=== PATIENT | male | born 1990 | race African-American/Black ===

== ENCOUNTER 2018-06-26 09:29 | Emergency (ER) | payer SELFPAY ==
[2018-06-26 09:32] VITALS: BMI 28.2
[2018-06-26 11:03] VITALS: BP 122/64
== END 2018-06-26 11:04 | disposition home or self-care (01) ==
LOC: D.ER 09:29
DX: F20.9 Schizophrenia, unspecified (principal); Z91.14 Patient's other noncompliance with medication regimen; Z91.19 Patient's noncompliance with other medical treatment and regimen

== ENCOUNTER 2018-08-07 08:03 | Emergency (ER) | payer OTHER ==
[~2018-08-07] VITALS: Ht 170.2 cm; Wt 79.1 kg
[2018-08-07 08:07] VITALS: Ht 170.2 cm; Wt 79.1 kg
[2018-08-07] MEDS ORDERED: VOLTAREN75 MG PO (08:52)
[2018-08-07 09:55] VITALS: BP 126/72
== END 2018-08-07 09:56 | disposition home or self-care (01) ==
LOC: D.ER 08:03
DX: S86.812A Strain of other muscle(s) and tendon(s) at lower leg level, left leg, initial encounter (principal); S83.92XA Sprain of unspecified site of left knee, initial encounter; X58.XXXA Exposure to other specified factors, initial encounter; F17.210 Nicotine dependence, cigarettes, uncomplicated

== ENCOUNTER 2020-05-18 06:40 | Emergency (ER) | payer MEDICAID ==
[~2020-05-18] VITALS: Ht 170.2 cm; Wt 76.5 kg
[~2020-05-18 06:40] MED LIST: VOLTAREN75 MG PO
[2020-05-18 06:47] VITALS: BP 132/91; Ht 170.2 cm; Wt 76.5 kg
[2020-05-18 07:29] LABS: BILIRUBIN NEGATIVE (NEGATIVE); KETONE NEGATIVE (NEGATIVE); NITRITE NEGATIVE (NEGATIVE); UROBILINOGEN NORMAL mg/dL (< 2)
[2020-05-18 07:35] LABS: BACTERIA FEW HPF (NONE SEEN)
== END 2020-05-18 08:23 | disposition home or self-care (01) ==
LOC: D.ER 06:40
PROVIDERS: Family Medicine
DX: I88.9 Nonspecific lymphadenitis, unspecified (principal); A57 Chancroid; R10.2 Pelvic and perineal pain; Z20.2 Contact with and (suspected) exposure to infections with a predominantly sexual mode of transmission